=== PATIENT | female | born 1950 | race Caucasian/White ===

== ENCOUNTER 2017-01-21 09:20 | Inpatient (IN) | payer MEDICARE, OTHER ==
[~2017-01-21] VITALS: Ht 172.7 cm; Wt 85.7 kg
[~2017-01-21 09:20] MED LIST: AMARYL 2MG TABLE2 MG PO; ANTIVERT 12.512.5 MG PO; ASPIRIN EC81 MG PO; BENADRYL 25MG C25 MG PO; COLCHICINE0.6 MG PO; CRANBERRY200 MG PO; CYMBALTA60 MG PO; ENBREL50 MG/1 ML SQ; IBUPROFEN400 MG PO; LEVAQUIN TAB 5500 MG PO; LEVAQUIN750 MG PO; LEVOXYL100 MCG PO; LISINOPRIL2.5 MG PO; NEURONTIN 400400 MG PO; NORCO 10-325 T1 EACH PO; PREDNISONE5 MG PO; PRILOSEC OTC20 MG PO; PROAIR HFA8.5 GM INH; REMERON45 MG PO; TESSALON PERLE100 MG PO; TYLENOL 500 MG500 MG PO; VALIUM 2 MG TAB2 MG PO; VITAMIN B COMP1 EACH PO; ZOCOR20 MG PO
[2017-01-21 10:11] LABS: HEMOGLOBIN 10.2 gm/dl (12.3-15.3); RED BLOOD COUNT 3.41 M/UL (4.00-5.10); WHITE BLOOD COUNT 13.4 K/UL (4.5-11.0)
[2017-01-21] MEDS ORDERED: KEPPRA500 MG PO (17:45)
[2017-01-21] MEDS ORDERED: PREDNISONE 5 MG5 MG PO (19:49)
[2017-01-21] MEDS ORDERED: SINEQUAN CAP 2525 MG PO (19:49)
[2017-01-21] MEDS ORDERED: LISINOPRIL2.5 MG PO (19:50)
[2017-01-21] MEDS ORDERED: XELJANZ XR (20:01)
[2017-01-22 04:47] LABS: HEMOGLOBIN 8.3 gm/dl (12.3-15.3)
[2017-01-22 04:57] LABS: RED BLOOD COUNT 2.83 M/UL (4.00-5.10); WHITE BLOOD COUNT 7.3 K/UL (4.5-11.0)
--- NOTE | 2017-01-22 10:40 | NUR ---
GEOGRAPHY DEPARTMENT CHAIR SPOKE WITH US CONCEPCION AND STATES SHE IS ON THE 5TH FLOOR SHE IS AWARE THAT THIS IS A STAT PROCEDURE
[2017-01-23 02:54] LABS: HEMOGLOBIN 8.6 gm/dl (12.3-15.3); RED BLOOD COUNT 2.94 M/UL (4.00-5.10); WHITE BLOOD COUNT 7.2 K/UL (4.5-11.0)
[2017-01-23 03:17] LABS: BUN/CREATININE RATIO 11 (0-10)
[2017-01-24 03:23] LABS: HEMOGLOBIN 8.5 gm/dl (12.3-15.3); RED BLOOD COUNT 2.9 M/UL (4.00-5.10); WHITE BLOOD COUNT 7.5 K/UL (4.5-11.0)
[2017-01-24 03:36] LABS: BUN/CREATININE RATIO 14 (0-10)
[2017-01-25 03:23] LABS: HEMOGLOBIN 8.7 gm/dl (12.3-15.3); RED BLOOD COUNT 3.02 M/UL (4.00-5.10); WHITE BLOOD COUNT 7.8 K/UL (4.5-11.0)
[2017-01-25 03:47] LABS: BUN/CREATININE RATIO 19 (0-10)
[2017-01-26 02:49] LABS: HEMOGLOBIN 9.5 gm/dl (12.3-15.3); RED BLOOD COUNT 3.28 M/UL (4.00-5.10); WHITE BLOOD COUNT 7.6 K/UL (4.5-11.0)
[2017-01-26 03:04] LABS: BUN/CREATININE RATIO 16 (0-10)
[2017-01-27 06:00] LABS: BUN/CREATININE RATIO 15 (0-10)
[2017-01-28 05:53] LABS: HEMOGLOBIN 10.2 gm/dl (12.3-15.3); RED BLOOD COUNT 3.49 M/UL (4.00-5.10)
[2017-01-28 05:56] LABS: WHITE BLOOD COUNT 11.1 K/UL (4.5-11.0)
[2017-01-28 06:31] LABS: BUN/CREATININE RATIO 16 (0-10)
[2017-01-29 06:32] LABS: HEMOGLOBIN 10.2 gm/dl (12.3-15.3); RED BLOOD COUNT 3.5 M/UL (4.00-5.10)
[2017-01-29 06:46] LABS: BUN/CREATININE RATIO 14 (0-10)
[2017-01-30 04:54] LABS: HEMOGLOBIN 9.6 gm/dl (12.3-15.3); RED BLOOD COUNT 3.37 M/UL (4.00-5.10); WHITE BLOOD COUNT 10.6 K/UL (4.5-11.0)
[2017-01-30 05:15] LABS: BUN/CREATININE RATIO 11 (0-10)
[2017-01-31 05:41] LABS: BUN/CREATININE RATIO 7 (0-10)
== END 2017-01-31 13:50 | DRG 871 ==
LOC: ER1 09:20 → ZEROF 11:48 → CCU 11:48 → M/S 01-26 09:50
PROVIDERS: Emergency Medicine; Family Medicine; Internal Medicine; ADMIT Emergency Medicine
PROC: 02HV33Z Insertion of Infusion Device into Superior Vena Cava, Percutaneous Approach (ICD-10-PCS; principal; 2017-01-21)
PROC: 5A09357 Assistance with Respiratory Ventilation, Less than 24 Consecutive Hours, Continuous Positive Airway Pressure (ICD-10-PCS; 2017-01-23)
DX: A41.9 Sepsis, unspecified organism (principal); J18.9 Pneumonia, unspecified organism; J96.01 Acute respiratory failure with hypoxia; R65.21 Severe sepsis with septic shock; G93.41 Metabolic encephalopathy; I50.31 Acute diastolic (congestive) heart failure; N30.00 Acute cystitis without hematuria; N17.9 Acute kidney failure, unspecified; Z94.0 Kidney transplant status; L03.116 Cellulitis of left lower limb; I13.0 Hypertensive heart and chronic kidney disease with heart failure and stage 1 through stage 4 chronic kidney disease, or unspecified chronic kidney disease; E87.2 Acidosis; M06.9 Rheumatoid arthritis, unspecified; M10.9 Gout, unspecified; E03.9 Hypothyroidism, unspecified; I25.10 Atherosclerotic heart disease of native coronary artery without angina pectoris; G89.29 Other chronic pain; M19.90 Unspecified osteoarthritis, unspecified site; E78.5 Hyperlipidemia, unspecified; F32.9 Major depressive disorder, single episode, unspecified; I65.21 Occlusion and stenosis of right carotid artery; K76.0 Fatty (change of) liver, not elsewhere classified; K21.9 Gastro-esophageal reflux disease without esophagitis; D64.9 Anemia, unspecified; B96.20 Unspecified Escherichia coli [E. coli] as the cause of diseases classified elsewhere; D63.8 Anemia in other chronic diseases classified elsewhere; E87.6 Hypokalemia; E87.70 Fluid overload, unspecified; Z79.52 Long term (current) use of systemic steroids; Z88.5 Allergy status to narcotic agent; Z82.49 Family history of ischemic heart disease and other diseases of the circulatory system; Z96.652 Presence of left artificial knee joint; Z90.710 Acquired absence of both cervix and uterus; Z79.899 Other long term (current) drug therapy; E11.22 Type 2 diabetes mellitus with diabetic chronic kidney disease; N18.9 Chronic kidney disease, unspecified
CPT/HCPCS: ECHO; 36415; 36600; 51702; 70450; 71010; 73590; 73610; 80048; 80053; 80202; 81001; 82550; 82553; 82803; 82962; 83605; 83735; 83874; 83880; 84132; 84484; 84550; 85025; 85027; 85610; 85730; 87040; 87077; 87086; 87186; 93005; 93306; 93971; 94640; 94660; 94664; 96361; 96374; 96375; 97110; 97116; 97530; 99291; C9113; J1335; J1650; J1940; J1956; J2310; J2543; J2930; J3370; J7030; J7050; J7070